=== PATIENT | male | born 1980 | race Caucasian/White ===

== ENCOUNTER 2017-01-31 04:11 | Emergency (ER) | payer SELFPAY ==
[2017-01-31] MEDS ORDERED: Ondansetron INJ* 2 MG/ML VIAL IV ONE (04:29)
[2017-01-31] MEDS ORDERED: Ondansetron INJ* 2 MG/ML VIAL ONE (04:31)
[2017-01-31] MEDS: NS 0.9% 1000 ML* 2,000 ML IV ONE ×2 (04:33→05:14)
[2017-01-31 04:43] LABS: Hematocrit 46 % (42-52); Hemoglobin 15.1 g/dl (14.0-18.0); Mean Corpuscular HGB Conc 33 g/dl (31-36); Mean Corpuscular Hemoglobin 29 pg (27-31); Mean Corpuscular Volume 89 fL (80-94); Mean Platelet Volume 8 um3 (7.4-10.4); Red Blood Count 5.14 10^6/ul (4.0-5.4); Red Cell Distribution Width 14 % (10.5-15); White Blood Count 9.2 10^3/ul (3.5-10.8)
[2017-01-31 04:55] LABS: Albumin 4.5 g/dL (3.2-5.2); BUN/Creatinine Ratio 16.1 (8-20); Calcium 9.5 mg/dL (8.6-10.3); EGFR African American 119.6 (>60); Globulin 3.1 g/dL (2-4); Total Bilirubin 0.4 mg/dL (0.2-1.0); Total Protein 7.6 g/dL (6.4-8.9)
[2017-01-31 05:13] LABS: Potassium 3.8 mmol/L (3.5-5.0)
[2017-01-31] MEDS ORDERED: Iohexol 300* (CONTRAST) 10 ML SDV IV ONE (05:36)
[2017-01-31] MEDS ORDERED: Acetaminophen TAB* 325 MG PO ONE (06:18)
[2017-01-31] MEDS ORDERED: Acetaminophen TAB* 325 MG ONE (06:19)
[2017-01-31 06:29] VITALS: BP 127/67
--- NOTE | 2017-01-31 06:53 | ED ---
Ledy Pickard Salem, scribed for Jim Walton on 01/31/17 at 0434 . GI/ HPI - HPI Summary HPI Summary: Patient is a 36 y/o M who presents to the ED with nausea and vomiting since 0100 this morning. He denies abd pain, CP, or diarrhea, but reports diaphoresis. He states that he had a burrito to eat before onset of sx (2030 yesterday), as well as 5 bears (last one at midnight). He has no other complaints. - History of Current Complaint Chief Complaint: EDGeneral Stated Complaint: POSS FOOD POISONING/VOMITING Hx Obtained From: Patient Onset/Duration: Started Hours Ago, Atraumatic, Still Present Timing: Intermittent, Lasting Hours Severity: Moderate Current Severity: Moderate Pain Intensity: 0 Associated Signs and Symptoms: Positive: Nausea, Vomiting. Negative: Diarrhea, Abdominal Pain, Chest Pain Aggravating Factor(s): Food Alleviating Factor(s): NPO - Allergy/Home Medications Allergies/Adverse Reactions: Allergies Allergy/AdvReac Type Severity Reaction Status Date / Time Cefaclor [From Ceclor] Allergy Eyes Verified 01/31/17 04:27 Itchy/Swollen/Red/Watery Penicillins [PCN] Allergy Eyes Verified 01/31/17 04:27 Itchy/Swollen/Red/Watery PMH/Surg Hx/FS Hx/Imm Hx Previously Healthy: Yes Infectious Disease History: Denies: Traveled Outside the [place] in Last 30 Days - Family History Known Family History: Positive: Diabetes, Other - No FHx of gastrointestinal problems. - Social History Alcohol Use: Occasionally Review of Systems Positive: Skin Diaphoresis. Negative: Fever Negative: Chest Pain Positive: Vomiting, Nausea. Negative: Abdominal Pain, Diarrhea All Other Systems Reviewed And Are Negative: Yes Physical Exam - Summary Physical Exam Summary: Well appearing, no pain distress Skin: warm, dry, reflects adequate perfusion Head/face: normal Eyes: EOMI, PHIL ENT: normal Neck: supple, nontender Resp: CTA, breath sounds present Cardio: RRR, pulses symmetrical Abd: nontender, soft Musc: normal, strength/ROM intact Neuro: normal, sensory motor intact, A&Ox3 Triage Information Reviewed: Yes Vital Signs On Initial Exam: Initial Vitals Temp Pulse Resp BP Pulse Ox 96.6 F 90 18 149/90 97 01/31/17 04:24 01/31/17 04:24 01/31/17 04:24 01/31/17 04:24 01/31/17 04:24 Vital Signs Reviewed: Yes Diagnostics - Vital Signs Vital Signs Temp Pulse Resp BP Pulse Ox 01/31/17 04:24 96.6 F 90 18 149/90 97 - Laboratory Result Diagrams: 01/31/17 04:30 01/31/17 04:30 Diagnostic Studies Comment: Trop 1: 0.00. INR: 0.82 Lab Statement: Any lab studies that have been ordered have been reviewed, and results considered in the medical decision making process. - CT ABD/PELVIS CT Interpretation Completed By: Radiologist - Finding: No bowel obstruction, colitis, diverticulitis, free fluid or free air. Appendix not seen. No pericecal inflammation to suggest acute appendicitis. Unremarkable pancreas, kidneys and gallbladder. Small umbilical hernia containing fat. Partly calcified chronic posterior disc bulge/broad-based central disc protrusion at T11-T12 causing moderate canal stenosis. - EKG 0547 EKG Interpretation: NSR @ 85 bpm. Re-Evaluation - Re-Evaluation First Eval Re-Evaluation Time: 06:16 Comment: Informed pt of imaging results. Pt is complaining of a headache, but refuses brain CT. GIGU Course/Dx - Course Course Of Treatment: 36 y/o M presents with nausea and vomiting since 0100 this morning. He denies abd pain, CP, or diarrhea, but reports diaphoresis. He received IV fluids and Zofran in the ED Course. EKG shows NSR @ 85bpm. CT of abd /pelvis shows, per radiology, Finding: No bowel obstruction, colitis, diverticulitis, free fluid or free air. Appendix not seen. No pericecal inflammation to suggest acute appendicitis. Unremarkable pancreas, kidneys and gallbladder. Small umbilical hernia containing fat. Partly calcified chronic posterior disc bulge/broad-based central disc protrusion at T11-T12 causing moderate canal stenosis. Labs were negative. This is most likely food poising. While pt complained of a headache, he is refusing a brain CT. He will be DCd with Zofran and instructions to follow up with PCP. - Diagnoses Provider Diagnoses: Vomiting, Food poisoning Discharge - Discharge Plan Condition: Stable Disposition: HOME Prescriptions: Ondansetron ODT TAB* [Zofran 4 MG Odt TAB*] 4 mg PO Q8H PRN #15 tab.odt PRN Reason: Nausea Patient Education Materials: Acute Nausea and Vomiting (ED), Food Poisoning (ED ) Referrals: Dominik Rosas MD [Primary Care Provider] - Additional Instructions: Please follow up with your primary care provider within 3 days. The documentation as recorded by the Ledy jones Salem accurately reflects the service I personally performed and the decisions made by Anton soni Emmanuel.
--- NOTE | 2017-01-31 07:49 | RAD ---
CLINICAL HISTORY: Abdominal pain COMPARISON: None TECHNIQUE: Multiple contiguous axial CT scans were obtained of the abdomen and pelvis after the administration of intravenous contrast. Coronal and sagittal multiplanar reformations are submitted for review. Oral contrast was not administered. Delayed images were obtained through the abdomen and pelvis. FINDINGS: LUNG BASES: The lung bases are clear. LIVER: The liver is normal in shape, size, contour, and attenuation. BILE DUCTS: There is no intrahepatic or extrahepatic biliary dilatation. GALLBLADDER: The gallbladder is normal, without pericholecystic inflammatory change. PANCREAS: The pancreas is normal, without mass or ductal dilatation. SPLEEN: Normal in size and appearance. UPPER GI TRACT: Evaluation of the gastrointestinal tract is limited by incomplete gastric distention. The upper GI tract is unremarkable. SMALL BOWEL AND MESENTERY: The small bowel is normal in contour, course, and caliber. There is no obstruction or dilatation. COLON: The colon is normal in contour, course, caliber. There is no pericolonic inflammatory change. The appendix is not visualized. ADRENALS: Normal bilaterally. KIDNEYS: The kidneys are normal in shape, size, contour, and axis. There is no hydronephrosis or nephrolithiasis. BLADDER: The bladder is smooth in contour. PELVIC ORGANS: The prostate gland is normal. The seminal vesicles are symmetric. AORTA: The aorta is normal. IVC: Unremarkable LYMPH NODES: There is no lymphadenopathy by size criteria. ABDOMINAL WALL: There is a small fat-containing umbilical hernia. BONES AND SOFT TISSUES: There are mild degenerative changes, with moderate narrowing of the osseous central canal T11-T12.. OTHER: None IMPRESSION: MODERATE NARROWING OF THE OSSEOUS CENTRAL CANAL AT T11-T12. NO ACUTE CT PATHOLOGY OF THE VISUALIZED ABDOMEN AND PELVIS
== END 2017-01-31 06:28 | disposition home or self-care (01) ==
LOC: ED 04:11
DX: T62.91XA Toxic effect of unspecified noxious substance eaten as food, accidental (unintentional), initial encounter (principal); R11.2 Nausea with vomiting, unspecified; Y92.9 Unspecified place or not applicable
CPT/HCPCS: 36415; 74177; 80053; 83690; 84484; 85025; 85610; 85730; 93005; 96374; 99283; A9270-GY; J2405; Q9967